=== PATIENT | female | born 1950 | race Caucasian/White ===

== ENCOUNTER → 2017-01-30 | Outpatient (CLI) | payer BC, MEDICARE | LOC: RT 14:19 | PROVIDERS: ATTEND Family Medicine | DX: R06.09 Other forms of dyspnea (principal) | CPT/HCPCS: 94060; 94726; 94729 ==

== ENCOUNTER → 2021-04-06 | Outpatient (CLI) | payer BC, MEDICARE ==
--- NOTE | 2021-04-06 12:24 | Diagnostic Imaging Report ---
Indication: Routine screening. Comparison is made with prior mammogram 08/20/2013 and 08/09/2011. 2-D and 3-D bilateral screening mammography was performed with CAD. Scattered fibroglandular densities are identified bilaterally. The parenchymal pattern appears stable. No dominant mass or malignant-appearing microcalcifications are seen. Axillae are unremarkable. IMPRESSION: BI-RADS Category 1 No mammographic features suspicious for malignancy are identified. Dictated by: Dictated on workstation # [id number]
== END ==
LOC: RAD 10:44
PROVIDERS: ATTEND Obstetrics & Gynecology
DX: Z12.31 Encounter for screening mammogram for malignant neoplasm of breast (principal)
CPT/HCPCS: 77063; 77067

== ENCOUNTER → 2023-01-09 | Outpatient (RCR) | payer MEDICARE | END | disposition home or self-care (01) | PROVIDERS: ATTEND Family Medicine | DX: M62.542 Muscle wasting and atrophy, not elsewhere classified, left hand (principal); R20.0 Anesthesia of skin; M25.562 Pain in left knee ==

== ENCOUNTER 2023-02-07 11:24 | Outpatient (RCR) | payer MEDICARE | END 2023-02-08 | disposition home or self-care (01) | PROVIDERS: ATTEND Family Medicine | DX: R20.0 Anesthesia of skin (principal); M25.562 Pain in left knee ==

== ENCOUNTER 2023-03-11 10:00 | Outpatient (RCR) | payer MEDICARE | END 2023-03-12 00:07 | disposition still patient (30) | PROVIDERS: ATTEND Family Medicine | DX: M25.562 Pain in left knee (principal); R53.1 Weakness ==

== ENCOUNTER 2023-03-21 09:11 | Outpatient (RCR) | payer MEDICARE | END 2023-04-10 08:30 | disposition home or self-care (01) | PROVIDERS: ATTEND Family Medicine | DX: M25.562 Pain in left knee (principal); R53.1 Weakness ==

== ENCOUNTER → 2023-04-18 | Outpatient (CLI) | payer MEDICARE ==
--- NOTE | 2023-04-18 14:25 | Diagnostic Imaging Report ---
Indication: Routine screening. Comparison is made with prior mammograms 04/06/2021 and 08/20/2013. 2-D and 3-D bilateral screening mammography was performed with CAD. Scattered fibroglandular densities are identified bilaterally. The parenchymal pattern is stable. No mass or malignant-appearing microcalcifications are seen. Axillae are unremarkable. IMPRESSION: BI-RADS Category 1 No mammographic features suspicious for malignancy are identified. ACR BI-RADS Category 1: Negative. Result letter will be mailed to the patient. Note: At least 10% of breast cancer is not imaged by mammography. Dictated by: Dictated on workstation # [id number]
== END ==
LOC: RAD 10:18
PROVIDERS: ATTEND Nurse Practitioner Family
DX: Z12.31 Encounter for screening mammogram for malignant neoplasm of breast (principal)
CPT/HCPCS: 77063; 77067